=== PATIENT | female | born 1985 | race Caucasian/White ===

== ENCOUNTER 2024-06-07 10:10 | Outpatient (REF) | payer MEDICAID, SELFPAY ==
[2024-06-07 11:58] LABS: Alanine Aminotransferase 16 U/L (0-31); Albumin Level 4.3 g/dL (3.5-5.0); Alkaline Phosphatase 40 U/L (39-117); Anion Gap 9 (12-20); Aspartate Amino Transferase 15 U/L (5-31); Bilirubin Total 1.2 mg/dL (0.0-1.0); Blood Urea Nitrogen 14 mg/dL (9-16); Calcium 9.1 mg/dL (8.4-10.2); Carbon Dioxide 25 mmol/L (22-29); Chloride 110 mmol/L (96-108); Estimated Glomerular Filt Rate > 60; Glucose Random 97 mg/dL (60-115); Potassium 4.1 mmol/L (3.3-5.1); Sodium 140 mmol/L (135-145); Total Protein 7.1 g/dL (6.5-8.0)
[2024-06-07 12:19] LABS: Ferritin 14 ng/mL (10-250); TSH reflex Free T4 2.09 uIU/mL (0.32-4.0)
[2024-06-07 13:08] LABS: CT PCR NOT DETECTED (Not Detect.); NG PCR NOT DETECTED (Not Detect.)
[2024-06-08 11:58] LABS: Bacterial Vaginosis PCR NEGATIVE (Negative); Candida Group PCR NOT DETECTED (Not Detect); Candida glab krusei PCR NOT DETECTED (Not Detect); Trichomonas vaginalis PCR NOT DETECTED (Not Detect)
[2024-06-09 08:08] LABS: Follicle Stimulating Hormone 12.1 mIU/mL; Prolactin Undiluted 4.5 ng/mL
== END 2024-06-07 10:11 | disposition home or self-care (01) ==
LOC: HO.HHCL 10:10
PROVIDERS: Visit Provider Internal Medicine
DX: N93.9 Abnormal uterine and vaginal bleeding, unspecified (principal)
CPT/HCPCS: 0352U; 36415; 80053; 82728; 83001; 84146; 84443; 87491; 87591

== ENCOUNTER 2024-07-14 07:59 | Outpatient (REF) | payer MEDICAID, SELFPAY | END 2024-07-14 08:00 | disposition home or self-care (01) | LOC: HO.US 07:59 | PROVIDERS: PCP Internal Medicine; Visit Provider Internal Medicine | DX: E04.1 Nontoxic single thyroid nodule (principal) | CPT/HCPCS: 76536 ==

== ENCOUNTER 2024-07-20 09:40 | Outpatient (REF) | payer MEDICAID, SELFPAY ==
[2024-07-20 12:19] LABS: Cholesterol 126 mg/dL (<200); HDL Cholesterol 48 mg/dL (>40); LDL Cholesterol Calculated 67 mg/dL (<100); Triglycerides 55 mg/dL (<150)
[2024-07-20 12:40] LABS: Free T4 (Free Thyroxine) 1.12 ng/dL (0.71-1.85); T4 Thyroxine 7.2 ug/dL (4.5-12.0); Thyroid Stimulating Hormone 1.75 uIU/mL (0.32-4.0)
[2024-07-20 14:18] LABS: Reflex LDLD? No
[2024-07-22 02:58] LABS: Triiodothyronine T3 Free 3.2 pg/mL (2.3-4.2); Triiodothyronine T3 Total 91 ng/dL (76-181)
[2024-07-23 05:12] LABS: TS Negative Control Passed; TS Panel A 0; TS Panel B 0; TS Positive Control Passed; TSpotTB Negative (Negative)
[2024-07-27 14:58] LABS: Anti Nuclear Antibody Pattern Nuclear, Nucleolar; Anti Nuclear Antibody Screen POSITIVE (NEGATIVE)
== END 2024-07-20 09:41 | disposition home or self-care (01) ==
LOC: HO.HHCL 09:40
PROVIDERS: Visit Provider Internal Medicine
DX: E04.1 Nontoxic single thyroid nodule (principal); I73.00 Raynaud's syndrome without gangrene; I34.1 Nonrheumatic mitral (valve) prolapse
CPT/HCPCS: 36415; 80061; 84436; 84439; 84443; 84480; 84481; 86038; 86039; 86481

== ENCOUNTER → 2024-08-02 07:46 | Outpatient (REF) | payer MEDICAID, SELFPAY ==
--- NOTE | 2024-08-02 07:50 | CA_ITS ---
Transthoracic Echocardiogram Patient (Last, First, Middle): Lois Li, Gender: Female Date of : 1985 Age: 39 Procedure Date: 08/02/2024 Procedure Type: Transthoracic Echocardiogram Location: OP Height: 160. cm Weight: 58.97 kg BSA: 1.61 m2 Heart Rate: 71 bpm BP: 100 / 60 mmHg Metal Trimmer: CONCEPCIÓN Saini MD: Martine Proctor MD Interlocking Installer: Parth Jones MD Symptoms: MVP Study Quality: Fair ECG Rhythm: Sinus Conclusions: - 1. Normal LV ejection fraction of 60 65% 2. Mild thickening of the mitral valve without significant prolapse with mild mitral regurgitation 3. Normal RV systolic pressure 4. No gross pericardial effusion Findings Left Ventricle Normal left ventricular size, thickness, and systolic function. The visually estimated ejection fraction is between 60-65%. Spectral Doppler is indicative of a normal filling pattern. Right Ventricle Normal right ventricular cavity size and systolic function. Atria The left atrium is normal in size. Interatrial shunt cannot be excluded. The right atrium is normal in size. Aortic Valve The aortic valve structure and function is likely normal. There is no aortic valve stenosis. There is no aortic valve regurgitation. Mitral Valve Likely normal mitral valve structure and function. There is mild anterior and posterior mitral leaflet thickening. There is bowing of the anterior mitral leaflet without obvious prolapse and bowing of the posterior mitral leaflet without obvious prolapse. There is mild mitral valve regurgitation. There is no mitral valve stenosis. Pulmonic Valve The pulmonic valve was not well visualized. Tricuspid Valve Likely normal tricuspid valve structure and function. There is trace tricuspid valve regurgitation. The right ventricular systolic pressure is normal. The right ventricular systolic pressure is 14 mmHg. Normal right atrial pressure. There is no evidence of pulmonary hypertension. Great Vessels All visible segments of the aorta are normal in size. The pulmonary artery was not well visualized. There is no dilatation of the ascending aorta measuring 2.40 cm. Venous The inferior vena cava is normal in size and collapses greater than 50% with inspiration. Pericardium/Pleural There is no evidence of pericardial effusion. Prior Study Comparison Changes noted compared to prior study dated: 04/21/2018. mild mitral regurgitation noted Measurements 2D Linear Measurements IVSd: 0.76 0.6-0.9/0.6-1.0 cm LVIDd: 4.49 3.9-5.3/4.2-5.9 cm LVIDd Index: 2.79 2.4-3.2/2.2-3.1 cm/m2 LVIDs: 2.84 2.0-3.6 cm LVPWd: 0.86 0.7-1.1 cm LA Diam: 3.20 2.7-3.8/3.0-4.0 cm LAIDs Index: 1.99 1.5-2.3 cm/m2 LV Mass: 142.73 67-162/88-224 g LV Mass Index: 88.65 43-95/49-115 g/m2 LVOT Diam: 1.90 3.0+(-)1.3 cm 2D Systolic Function EF 4C: 67.20 >55% EF 2C: 59.50 >55% EF BiP: 64.20 >55% Mitral Valve MV Pk E: 0.75 MV PK A: 0.67 MV Decel Time: 138.00 E/A: 1.10 E'Lateral: 10.30 E'Medial: 9.36 E/E' Med: 8.00 E/E' Lat: 7.20 PHT: 40.00 MVA PHT: 5.50 Decel Obion: 5.40 Aortic Valve AoV Pk Olman: 0.99 AoV Mn Olman: 0.70 AoV VTI: 0.21 AoV Pk Grad: 4.00 Aov Mn Grad: 2.00 MELISSA Cont.VTI: 2.32 LVOT LVOT Pk Olman: 0.86 LVOT Mn Olman: 0.61 LVOT VTI: 0.18 LVOT Pk Grad: 3.00 LVOT Mn Grad: 2.00 LVOT Diam: 1.90 LVOT Area: 2.84 Diastolic Function MV Pk E: 0.75 MV Pk A: 0.67 E/A: 1.10 E'Medial: 9.36 E/E' Med: 8.00 E' Laterial: 10.30 E/E' Lat: 7.20 Right Ventricle TAPSE (mm): 22.70 TVS' Olman: 11.40 Tricuspid Valve TR Pk Olman: 1.65 TR Pk Grad: 11.00 RA Press: 3.00 RVSP: 14.00 Great Vessels Aorta Sinus of Valsalva: 2.80 2.0-3.5 cm Ao Asc: 2.40 2.1-3.4 cm Pulmonary Valve PV Pk Olman: 0.71 Peak PV Grad: 2.00 Updated in Other Vendor System with Status of Final Parth Jones MD electronically signed on 08/02/2024 1:12:00 PM with status of Final
== END ==
LOC: HO.CARD 07:46
PROVIDERS: PCP Internal Medicine; Visit Provider Internal Medicine
DX: I34.1 Nonrheumatic mitral (valve) prolapse (principal)
CPT/HCPCS: 93306

== ENCOUNTER → 2024-08-02 07:50 | Outpatient (BNV) | payer MEDICAID, SELFPAY | PROVIDERS: PCP Internal Medicine; Visit Provider Internal Medicine Cardiovascular Disease | DX: I34.0 Nonrheumatic mitral (valve) insufficiency (principal) | CPT/HCPCS: 93306 ==

== ENCOUNTER 2024-12-09 08:57 | Outpatient (AMB) | payer MEDICAID, SELFPAY ==
--- NOTE | 2024-12-09 09:41 | A.OFFVIS_ITS ---
Vital Signs 12/09/24 09:44 Height 5 ft 2 in Weight 138 lb 14.259 oz BMI 25.4 BP 112/62 Blood Pressure Location Lt brachial Position Sitting Pulse 71 Pulse Source Monitor Intake Visit Reasons: PERSONAL CARE SERVICE PROVIDER/Dr. Proctor/Mitral valve prolapse Allergies No Known Allergies [No Known Allergies*] Allergy (Verified 12/09/24 09:45) Medication List - Last Reconciled 12/09/24 by Romeo Delgadillo MD No Known Home Meds HPI Comments Details: Lois is here for consultation regarding mitral valve prolapse. Apparently, she was told to have mitral valve prolapse wrong age of 14 or so. She was 'prophylactically' put on atenolol for many years but she has not taken that recently. Otherwise, she does not really have any clear-cut cardiac symptoms like chest pains or shortness of breath or palpitations or syncopal episodes. Unlimited physical activity tolerance and she otherwise feels well. [facility] Medical History (Updated 12/09/24 @ 10:29 by Romeo Delgadillo MD) delivery delivered Hernia MVP (mitral valve prolapse) Surgical History (Updated 12/09/24 @ 09:48 by Xiomy Barnett) Previous back surgery Family History (Updated 12/09/24 @ 09:49 by Xiomy Barnett) Father H/O heart surgery Mother High blood pressure Kidney disease Social History (Updated 12/09/24 @ 09:49 by Xiomy Barnett) Alcohol intake: never Patient Tobacco Use Status: Never used Tobacco Review of Systems Const Denies weakness ENT Denies dizziness Card Denies chest pain, Denies chest pain with activity, Denies syncope, Denies rapid heart rate, Denies pedal edema, Denies edema, Denies leg edema, Denies lightheadedness, Reports palpitations, Denies dyspnea, Denies dyspnea on exertion and Denies orthopnea Resp Denies cough, Denies dyspnea and Denies dyspnea on exertion GI Denies hematochezia and Denies change in stool character Musc Denies abnormal gait, Denies muscle cramps, Denies muscle weakness, Denies numbness, Denies radiating pain into limb and Denies tingling Neuro Denies abnormal gait, Denies dizziness, Denies syncope, Denies numbness, Denies tingling and Denies weakness Endo Reports palpitations Physical Exam Vital Signs: Last Vital Signs Pulse 71 03/27/25 09:44 BP 112/62 12/09/24 09:44 BMI result Body Mass Index 25.4 Const General: comfortable and no acute distress Orientation/consciousness: patient oriented x3 HEENT Other: Unremarkable Head: Yes normal to inspection Neck Neck: Yes normal visual inspection Chest Chest palpation & inspection: normal inspection of the chest Resp Auscultation: clear to auscultation bilaterally Cardio Palpation: normal PMI Heart sounds: S1 normal heart sound present, S2 normal heart sound present, no gallops, no murmurs and no rubs GI Palpation (GI): Soft to palpation Back/Spine/Pelvis Other: unremarkable Skin General skin exam: no rashes or lesions noted Neuro General: patient oriented x3 Extrem General: Yes normal to inspection Psych Mental Status: mental status grossly normal Office Procedures EKG Details: EKG with underlying sinus rhythm at 71/Min; no significant ST-T changes and otherwise unremarkable. [place] [address]-Lfvgzeixvoqdexxph, Complete Assessment & Plan Assessment & Plan (1) MVP (mitral valve prolapse): Code(s): I34.1 - Nonrheumatic mitral (valve) prolapse Category: Medical Plan: In the recent echocardiogram, preserved LVEF at 60-65%. There is evidence of mitral valve thickening and bowing of both anterior and posterior leaflets, but no definitive prolapse. Mild mitral regurgitation. Findings discussed with patient. Overall benign. Low likelihood of progression into hemodynamically significant mitral regurgitation requiring any interventions. It seems she has had this for at least 25+ years. Advised her to monitor for any cardiac symptoms and report if any. She agrees. Otherwise, recommend repeating an echocardiogram with follow-up in 3-4 years. There is no need for Atenolol. Coding Level of Care Code New Pt Level 3 (94348) Diagnoses MVP (mitral valve prolapse) I34.1 CPT Codes EKG - CPT: 94610-Qibbihoihoqcowlel, Complete ([id number])
[2024-12-09 09:44] VITALS: BP 112/62; PULSE 71; BMI 25.4
== END 2024-12-09 10:16 | disposition home or self-care (01) ==
LOC: HO.HCS 08:57
PROVIDERS: PCP Internal Medicine; Visit Provider Internal Medicine
DX: I34.1 Nonrheumatic mitral (valve) prolapse (principal)
CPT/HCPCS: 93010; 99203

== ENCOUNTER → 2024-12-09 08:57 | Outpatient (BNVA) | payer MEDICAID, SELFPAY | PROVIDERS: PCP Internal Medicine; Visit Provider Internal Medicine | DX: I34.1 Nonrheumatic mitral (valve) prolapse (principal) | CPT/HCPCS: 93005; 99202 ==

== ENCOUNTER 2025-06-13 11:47 | Outpatient (REF) | payer MEDICAID, SELFPAY ==
--- NOTE | ~2025-06-13 | XR_ITS ---
EXAMINATION: XR CHEST CLINICAL INFORMATION: right anterior chest pain COMPARISON: None available. TECHNIQUE: 2 views of the chest were obtained. FINDINGS: Bilateral Narayanan rods are noted. Lungs are clear. Heart size is normal. There is no pleural effusion. XR/XR chest 2V IMPRESSION: No acute disease. Spinal hardware. Electronically signed by: Kishan Perez MD 06/13/2025 12:02 PM EDT RP
--- OUTSIDE RECORDS SUMMARY | 2025-06-13 10:20 | XMS_ITS | Encounter Summary ---
Author Organization [employer] Address [address] [facility] [address] [place] [address] Care Team Providers Care Wind Up Worker Name Role Phone Martine Proctor MD Primary Care Provider + Reason for Referral * Imaging (Routine) - Authorized Specialty Diagnoses / Procedures Referred By Latasha t Referred To Contact Radiology Diagnoses Breast pain, right Procedures BI US Breast Complete Right Chang Pablo MD [address] [place] [address] Phone: tel: fax: [facility] Referral ID Status Reason Start Date Expiration Date V isits Requested Visits Authorized [id number] Authorized 06/13/2025 06/13/2026 1 1 * Imaging (Routine) - Authorized Specialty Diagnoses / Procedures Referred By Latasha t Referred To Contact Radiology Diagnoses Breast pain, right Procedures Mammogram Diagnostic Right Chang Pablo MD [address] [place] [address] Phone: tel: fax: [facility] Referral ID Status Reason Start Date Expiration Date V isits Requested Visits Authorized [id number] Authorized 06/13/2025 06/13/2026 1 1 Reason for Visit * Reason Comments Arm Pain Encounter Details Date Type Department Care Team (Late st Contact Info) Description 06/13/2025 10:20 AM EDT Office Visit [facility] [address] [place] [address] Right-sided chest pain (Primary Dx); Breast pain, right Social History Tobacco Use Types Packs/Day Years Used Date Smoking Tobacco: Never Smokeless Tobacco: Never Alcohol Use Standard Drinks/Week Comments Never 0 (1 standard drink = 0.6 oz pur e alcohol) Housing Stability Answer Date Recorded What is your housing situation today? I have олег dutton 06/25/[address] you li ve. Do you have problems with any of the following? None of the above 06/25/2024 Food Insecurity Answer Date Recorded Within the past 12 months, y ou worried that your food would run out before you got money to buy more: Never True 06/25/2024 Within the past 12 months,th e food you bought just didn't last and you didn't have enough money to get more: Never True 07/2024 Transportation Answer Date Recorded In the past 12 months, has l ack of transportation kept you from medical appts, meetings, work or from getting things needed for daily living? No 06/25/2024 Utilities Answer Date Recorded In the past 12 months, has t he electric, gas, oil or water company threatened to shut off services in your home? No 06/25/2024 Depression Answer Date Recorded Patient Health Questionnaire-2 Score 0 07/05/2024 Internet Access Answer Date Recorded Internet Access Q1 Yes 06/25/2024 Internet Access Q2 Not on file 06/25/2024 Comments No Sex and Gender Information Value Date Recorded Sex Assigned at Female 07/15/2022 10:32 AM EDT Legal Sex Female 10:32 AM EDT Gender Identity Female 07/15/2022 10:32 AM EDT Sexual Orientation Straight 07/15/2022 10 :32 AM EDT documented as of this encounter Last Filed Vital Signs Vital Sign Reading Time Taken Comments Blood Pressure 126/69 06/13/2025 10:40 AM EDT Pulse 77 06/13/2025 10:40 AM EDT Temperature 36.8 C (98.2 F) 06/13/2025 10:40 AM EDT Respiratory Rate 18 06/13/2025 10:4 0 AM EDT Oxygen Saturation 98% 06/13/2025 10: 40 AM EDT Inhaled Oxygen Concentration - - Weight 62.1 kg (136 lb 12.8 oz) 025 10:40 AM EDT Height - - Body Mass Index 24.82 09/13/2024 10:24 AM EST documented in this encounter Plan of Treatment Upcoming Encounters Date Type Department Care Team (Late st Contact Info) Description 2025 9:00 AM EDT Office Visit [facility] [address] [place] [address] Mamie, Maye [address] [place] [address] 08/19/2025 12:15 PM EST Office Visit [facility] [address] [place] [address] [phone] Martine Proctor MD [address] [place] [phone] Scheduled Orders Name Type Priority Associated Diagnoses Orde r Schedule D-Dimer, Quantitative Lab Routine Right-sided chest pain Expected: 06/13/2025 (Approximate), Expires: 06/13/2026 Mammogram Diagnostic Right Imaging Routine Breast pain, right Expected: 06/13/2025, Expires: 08/13/2026 BI US Breast Complete Right Imaging Routine Breast pain, right Expected: 06/13/2025, Expires: 06/13/2026 documented as of this encounter Procedures Procedure Name Priority Date/Time Associated Diagnosis Comments XR CHEST 2 VIEWS Routine 06/13/2025 11:5 7 AM EDT Right-sided chest pain documented in this encounter Results * XR Chest 2 Views (06/13/2025 11:57 AM EDT) Anatomical Region Laterality Modality Chest Radiographic Yolanda ging 06/13/2025 11:5 7 AM EDT Narrative 06/13/2025 12:05 PM EDT [address] [address] XRay Report Signed Patient: Lois Li MR#: [id number] : 1985 Acct:[id number] Age/Sex: 39 / F ADM Date: 06/13/25 [facility]: [facility] Attending Dr: Chang Pablo MD Ordering Physician: CHANG PABLO MD Date of Service: 06/13/25 Procedure(s): XR chest 2V Accession Number(s): [id number] cc: CHANG PABLO MD Reason for Exam: right anterior chest pain EXAMINATION: XR CHEST CLINICAL INFORMATION: right anterior chest pain COMPARISON: None available. TECHNIQUE: 2 views of the chest were obtained. FINDINGS: Bilateral Narayanan rods are noted. Lungs are clear. Heart size is normal. There is no pleural effusion. XR/XR chest 2V IMPRESSION: No acute disease. Spinal hardware. Electronically signed by: Kishan Perez MD 06/13/2025 12:02 PM EDT RP Dictated By: Kishan Perez MD Signed By: <Electronically signed by Kishan Perez MD in OV> 06/13/25 1202 DD/ 1157 TD/TT: 06/13/25 1158 Granite Fabricator: Procedure Note Donotuseinterpreter, Image - 06/13/[address] [address] XRay Report Signed Patient: Lois Li#: M [id number] : 1985Acct:[id number] Age/Sex: 39 / FADM Date: 06/13/25 Loc: HO.[facility] Attending Dr: Chang Pablo MD Ordering Physician: CHANG PABLO MD Date of Service: 06/13/25 Procedure(s): XR chest 2V Accession Number(s): [id number] cc: CHANG PABLO MD Reason for Exam: right anterior chest pain EXAMINATION: XR CHEST CLINICAL INFORMATION: right anterior chest pain COMPARISON: None available. TECHNIQUE: 2 views of the chest were obtained. FINDINGS: Bilateral Narayanan rods are noted. Lungs are clear. Heart size is normal. There is no pleural effusion. XR/XR chest 2V IMPRESSION: No acute disease. Spinal hardware. Electronically signed by: Kishan Perez MD 06/13/2025 12:02 PM EDT RP Dictated By: Kishan Perez MD Signed By: <Electronically signed by Kishan Perez MD in OV> 06/13/25 1202 DD/ 1157 TD/TT: 06/13/25 1158 Granite Fabricator: Chang Pablo MD IMG XR PROCEDURES Final Result documented in this encounter Visit Diagnoses Diagnosis Right-sided chest pain- Primary Breast pain, right documented in this encounter Care Teams Wind Up Worker Relationship Specialty Start Date End Date Martine Proctor MD [address] [place] [phone] PCP - General Internal Medicine 06/07/24 documented as of this encounter
--- OUTSIDE RECORDS SUMMARY | 2025-06-13 13:15 | XMS_ITS | Encounter Summary ---
Author Organization [employer] Address [address] [place] [address] [address] [place] [address] Care Team Providers Care Medical Scientist Name Role Phone Martine Proctor MD Primary Care Provider + Encounter Details Date Type Department Care Team (Late st Contact Info) Description 10/23/2023 Orders Only [facility] [address] [place] [address] Angelina Mayer DDS [address] [place] [address] Social History Tobacco Use Types Packs/Day Years Used Date Smoking Tobacco: Never Smokeless Tobacco: Never Alcohol Use Standard Drinks/Week Comments Never 0 (1 standard drink = 0.6 oz pur e alcohol) Comments Unknown Sex and Gender Information Value Date Recorded Sex Assigned at Female 07/15/2022 10:32 AM EDT Legal Sex Female 10:32 AM EDT Gender Identity Female 07/15/2022 10:32 AM EDT Sexual Orientation Straight 07/15/2022 10 :32 AM EDT documented as of this encounter Plan of Treatment Upcoming Encounters Date Type Department Care Team (Late st Contact Info) Description 2025 9:00 AM EDT Office Visit [facility] [address] [place] [address] Maye Hatch [address] [place] [address] 08/19/2025 12:15 PM EST Office Visit [facility] [address] [place] [address] Martine Proctor MD [address] [place] [address] documented as of this encounter Visit Diagnoses Not on filedocumented in this encounter Care Teams Medical Scientist Relationship Specialty Start Date End Date Martine Proctor MD [address] [place] [address] PCP - General Internal Medicine 06/07/24 documented as of this encounter
--- OUTSIDE RECORDS SUMMARY | 2025-06-13 13:15 | XMS_ITS | Encounter Summary ---
Author Organization [employer] Address [address] [facility] [address] [place] [address] Care Team Providers Care Varitype Operator Name Role Phone Martine Proctor MD Primary Care Provider + Encounter Details Date Type Department Care Team (Latest Contact Info) Description 06/13/2025 Travel Social History Tobacco Use Types Packs/Day Years Used Date Smoking Tobacco: Never Smokeless Tobacco: Never Alcohol Use Standard Drinks/Week Comments Never 0 (1 standard drink = 0.6 oz pur e alcohol) Housing Stability Answer Date Recorded What is your housing situation today? I have олегbimal dutton 06/25/[address] you [...] Description 2025 9:00 AM EDT Office Visit [facility] [address] [place] [address] Mamie, Maye [address] [place] [address] 08/19/2025 12:15 PM EST Office Visit [facility] [address] [place] [address] Martine Proctor MD [address] [place] [address] documented as of this encounter Visit Diagnoses Not on filedocumented in this encounter Care Teams Varitype Operator Relationship Specialty Start Date End Date Martine Procotr MD [address] [place] [address] PCP - General Internal Medicine 06/07/24 documented as of this encounter
--- OUTSIDE RECORDS SUMMARY | 2025-06-13 13:15 | XMS_ITS | Encounter Summary ---
Author Organization [employer] Address [address] [place] [address] [address] [place] [address] Care Team Providers Care Production Corrugator Name Role Phone Martine Proctor MD Primary Care Provider + Reason for Visit * Reason Onset Date Comments Appointment 03/07/2023 Encounter Details Date Type Department Care Team ([facility] st Contact Info) Description 03/07/2023 Telephone [facility] [address] [place] [address] Cipriano Jordan, DDS [address] [place] [address] Appointment Social History Tobacco Use Types Packs/Day Years [...] Orientation Straight 07/15/2022 10 :32 AM EDT COVID-19 Exposure Response Date Recorded In the last 10 days, have yo u been in contact with someone who was confirmed or suspected to have Coronavirus/COVID-19? No / Unsure 03/10/2023 9:24 AM EDT documented as of this encounter Miscellaneous Notes * Telephone Encounter - Latisha Blanco - 03/07/2023 11:08 AM EDT Lois Patel 1985 Patient called in and stated she needs pre op medication before appt on 03/10/23. documented in this encounter Plan of Treatment Upcoming Encounters Date Type Department Care Team (Late st Contact Info) Description 2025 9:00 AM EDT Office Visit [facility] [address] [place], [place] [phone] Mamie, Maye [address] [place] [address] 08/19/2025 12:15 PM EST Office Visit [facility] [address] [place] [address] Martine Proctor MD [address] [place] [address] documented as of this encounter Visit Diagnoses Not on filedocumented in this encounter Care Teams Production Corrugator Relationship Specialty Start Date End Date Martine Proctor MD [address] [place] [address] [phone] PCP - General Internal Medicine 06/07/24 documented as of this encounter
--- OUTSIDE RECORDS SUMMARY | 2025-06-13 13:15 | XMS_ITS | Encounter Summary ---
Author Organization [employer] Address [address] [facility] [address] [place] [address] Care Team Providers Care Timber Surveyor Name Role Phone Martine Proctor MD Primary Care Provider + Encounter Details Date Type Department Care Team (Late st Contact Info) Description 06/13/2025 Orders Only [facility] ADULT D[facility] [address] [place] [address] Angelina Mayer, DDS [address] [place] [address] Social History Tobacco Use Types Packs/Day Years [...] t he electric, gas, oil or water [employer] threatened to shut off services in your [...] Description 2025 9:00 AM EDT Office Visit [facility] [address] [place] [address] MamieMaye [address] [place] [address] 08/19/2025 12:15 PM EST Office Visit [facility] MED[facility] [address] [place] [address] Martine Proctor MD [address] [place] [address] documented as of this encounter Visit Diagnoses Not on filedocumented in this encounter Care Teams Timber Surveyor Relationship Specialty Start Date End Date Martine Proctor MD [address] [place] [address] PCP - General Internal Medicine 06/07/24 documented as of this encounter
--- OUTSIDE RECORDS SUMMARY | 2025-06-13 13:15 | XMS_ITS | Encounter Summary ---
Author Organization [employer] Address [address] [facility] [address] [place] [address] Care Team Providers Care Internet Salesperson Name Role Phone Martine Proctor MD Primary Care Provider + Reason for Visit * Reason Onset Date Comments medication change 10/01/2023 Encounter Details Date Type Department Care Team ([facility] st Contact Info) Description 10/01/2023 Telephone [facility] AD[facility] [address] [place] [address] Angelina Mayer, DDS [address] [place] [address] medication change Social History Tobacco Use Types Packs/Day Years [...] encounter Miscellaneous Notes * Telephone Encounter - Refugio Cummings DMD - 10/06/2023 11:31 AM EST Please follow up with Dr. Patel. Dr. Cummings * Telephone Encounter - Lisseth Ibarra - 10/06/2023 11:12 AM EST Patient called in again today stating that she is unable to take the antibiotic in pill form. She needs it in liquid. Can this be sent in for her DR * Telephone Encounter - Caroline Thompson - 10/01/2023 11:23 AM EST Patient needs dr patel to resend medication Lois Patel is a 38 y.o. year old female patient with referred for .liquid only she can not drink pills documented in this encounter Plan of Treatment Upcoming Encounters Date Type Department Care Team (Late st Contact Info) Description 2025 9:00 AM EDT Office Visit [facility] ADULT D[facility] [address] [place] [address] Mamie, Maye [address] [place] [address] 08/19/2025 12:15 PM EST Office Visit [facility] MEDICINE [address] [place] [address] Martine Proctor MD [address] [place] [address] documented as of this encounter Visit Diagnoses Not on filedocumented in this encounter Care Teams Internet Salesperson Relationship Specialty Start Date End Date Martine Proctor MD [address] [place] [address] PCP - General Internal Medicine 06/07/24 documented as of this encounter
--- OUTSIDE RECORDS SUMMARY | 2025-06-13 13:15 | XMS_ITS | Encounter Summary ---
Author Organization [employer] Address [address] [place] [address] [address] [place] [address] Care Team Providers Care Ticket Writer Name Role Phone Martine Proctor MD Primary Care Provider + Encounter Details Date Type Department Care Team (Late st Contact Info) Description 09/16/2023 Orders Only [facility] [address] [place] [address] Angelina Mayer, DDS [address] [place] [address] Social History Tobacco Use Types Packs/Day Years [...] Description 2025 9:00 AM EDT Office Visit [facility] [address] [place] [address] Maye Hatch [address] [place] [address] 08/19/2025 12:15 PM EST Office Visit [facility] MED[facility] [address] [place] [address] Martine Proctor MD [address] [place] [address] documented as of this encounter Visit Diagnoses Not on filedocumented in this encounter Care Teams Ticket Writer Relationship Specialty Start Date End Date Martine Proctor MD [address] [place] [address] PCP - General Internal Medicine 06/07/24 documented as of this encounter
--- OUTSIDE RECORDS SUMMARY | 2025-06-13 13:15 | XMS_ITS | Encounter Summary ---
Author Organization [employer] Address [address] [place] [address] Care Team Providers Care Cook Enchilada Name Role Phone Mratine Proctor MD Primary Care Provider + Encounter Details Date Type Department Care Team ([facility] st Contact Info) Description 02/18/2025 Orders Only [facility] [address] [place], [place] [phone] ProviderIsabel MD Social History Tobacco Use Types Packs/Day Years [...] Description 2025 9:00 AM EDT Office Visit [facility] ADULT [facility] [address] [place] [address] Mamie, Maye [address] [place] [address] 08/19/2025 12:15 PM EST Office Visit [facility] MED[facility] [address] [place] [address] Martine Proctor MD [address] [place] [phone] documented as of this encounter Procedures Procedure Name Priority Date/Time Associated Diagnosis Comments MAMMOGRAPHY Routine 01/24/2025 8:47 AM EDT documented in this encounter Results * Hm Mammography (01/24/2025 8:47 AM EDT) Anatomical Region Laterality Modality Other Historical Provider HEALTH MAINTENANCE Final Result documented in this encounter Visit Diagnoses Not on filedocumented in this encounter Care Teams Cook Enchilada Relationship Specialty Start Date End Date Martine Proctor MD [address] [place] [address] [phone] PCP - General Internal Medicine 06/07/24 documented as of this encounter
--- OUTSIDE RECORDS SUMMARY | 2025-06-13 13:15 | XMS_ITS | Encounter Summary ---
Author Organization [employer] Address [address] [place] [address] 7 [place] [address] Care Team Providers Care Counselor Nurses' Association Name Role Phone Martine Proctor MD Primary Care Provider + Encounter Details Date Type Department Care Team (Late Contact Info) Description 01/15/2023 Abstract [facility] ADULT DENTAL [address] [place] [address] Tony Del Rosario Social History Tobacco Use Types Packs/Day Years [...] suspected to have Coronavirus/COVID-19? No / Unsure 01/16/2023 2:36 PM EDT documented as of this encounter Plan of Treatment Upcoming Encounters Date Type Department Care Team (Late st Contact Info) Description 2025 9:00 AM EDT Office Visit [facility] ADULT [facility] [address] [place] [address] Maye Hatch [address] [place] [address] 08/19/2025 12:15 PM EST Office Visit [facility] MED[facility] [address] [place] [address] Martine Proctor MD [address] [place] [address] documented as of this encounter Visit Diagnoses Not on filedocumented in this encounter Care Teams Counselor Nurses' Association Relationship Specialty Start Date End Date Martine Proctor MD [address] [place] [address] PCP - General Internal Medicine 06/07/24 documented as of this encounter
--- OUTSIDE RECORDS SUMMARY | 2025-06-13 13:15 | XMS_ITS | Encounter Summary ---
Author Organization [employer] Address [address] [place] [address] 7 [place] [address] Care Team Providers Care Ceramic Designer Name Role Phone Martine Proctor MD Primary Care Provider + Encounter Details Date Type Department Care Team (Late st Contact Info) Description 03/11/2023 Abstract [facility] ADULT DENTAL [address] [place] [address] Social History Tobacco Use Types Packs/Day Years [...] Description 2025 9:00 AM EDT Office Visit [facility] ADULT DENTAL [address] [place] [address] Maye Hatch [address] [place] [address] 08/19/2025 12:15 PM EST Office Visit [facility] MEDICINE [address] [place], [place] [phone] Martine Proctor MD [address] [place], [place] [phone] documented as of this encounter Visit Diagnoses Not on filedocumented in this encounter Care Teams Ceramic Designer Relationship Specialty Start Date End Date Martine Proctor MD [address] [place] [address] PCP - General Internal Medicine 06/07/24 documented as of this encounter
--- OUTSIDE RECORDS SUMMARY | 2025-06-13 13:15 | XMS_ITS | Encounter Summary ---
Author Organization [employer] Address [address] [facility] [address] [place] [address] Care Team Providers Care Sock Liner Name Role Phone Martine Proctor MD Primary Care Provider + Reason for Visit * Reason Onset Date Comments Appointment 01/15/2023 Encounter Details Date Type Department Care Team ([facility] st Contact Info) Description 01/15/[address] [facility] ADULT DENTAL [address] [place] [address] Cipriano Jordan, DDS [address] [place] [address] Appointment Social History Tobacco Use Types Packs/Day [...] PM EDT documented as of this encounter Miscellaneous Notes * Telephone Encounter - Latisha Blanco - 01/15/2023 2:46 PM EDT Thank you I have reached out to patient * Telephone Encounter - Latisha Blanco - 01/15/2023 9:58 AM EDT Lois Patel MITA 1985 Patient has appt on 01/16/2023 and needs prescription sent to pharmacy before appt documented in this encounter Plan of Treatment Upcoming Encounters Date Type Department Care Team (Late st Contact Info) Description 2025 9:00 AM EDT Office Visit [facility] ADULT DENTAL [address] [place] [address] Maye Hatch [address] [place] [address] 08/19/2025 12:15 PM EST Office Visit [facility] [address] [place] [address] Martine Proctor MD [address] [place] [address] documented as of this encounter Visit Diagnoses Not on filedocumented in this encounter Care Teams Sock Liner Relationship Specialty Start Date End Date Martine Proctor MD [address] [place] [address] PCP - General Internal Medicine 06/07/24 documented as of this encounter
--- OUTSIDE RECORDS SUMMARY | 2025-06-13 13:15 | XMS_ITS | Encounter Summary ---
Author Organization [employer] Address [address] [facility] [address] [place] [address] Care Team Providers Care Scenario Writer Name Role Phone Martine Proctor MD Primary Care Provider + Encounter Details Date Type Department Care Team ([facility] st Contact Info) Description 01/05/2025 Orders Only [facility] [address] [place], [place] [phone] Andreina Ramirez Social History Tobacco Use Types Packs/Day Years [...] Description 2025 9:00 AM EDT Office Visit [facility] ADULT DENTAL [address] [place], [place] [phone] Mamie, Maye [address] [place] [address] 08/19/2025 12:15 PM EST Office Visit [facility] MEDICINE [address] [place] [address] Martine Proctor MD [address] [place] [address] documented as of this encounter Procedures Procedure Name Priority Date/Time Associated Diagnosis Comments PAP/HPV Routine 12/30/2024 12:00 AM EDT documented in this encounter Results * HM PAP/HPV (12/30/2024 12:00 AM EDT) Pap Smear 1. NILM 1. NILM [facility] HPV Not Detected Undetected, Indeterminat e, Quantitative , Not Detected [facility] us Historical Provider [facility] MAINTENANCE Edited Result - Final [facility] [address] [place] [address], documented in this encounter Visit Diagnoses Not on filedocumented in this encounter Care Teams Scenario Writer Relationship Specialty Start Date End Date Martine Proctor MD [address] [place] [phone] PCP - General Internal Medicine 06/07/24 documented as of this encounter
--- OUTSIDE RECORDS SUMMARY | 2025-06-13 13:15 | XMS_ITS | Clinical Summary ---
Author Organization [employer] Address [address] [facility] 7t [place] [address] Care Team Providers Care Strategic Marketing Manager Name Role Phone Martine Proctor MD Primary Care Provider + Allergies No known active allergies Medications amoxicillin (Amoxil) 400 MG/5ML suspension Take 25 mL (2,000 mg) by mouth 1 (one) time for 1 dose. Take 25 ml by mouth 1 hour prior dental procedure 25 mL 06/13/20 25 Active acetaminophen (Tylenol) 160 MG/5ML liquid Take 20.3 mL (650 mg) by mouth every 4 (four) hours if needed for moderate pain or fever for up to 10 days. 473 mL 06/13/20 25 025 Active ibuprofen 100 MG/5ML suspension Take 20 mL (400 mg) by mouth every 6 (six) hours if needed for moderate pain, fever or headaches. 400 mL 06/13/20 25 Active ibuprofen 100 MG/5ML suspension Take 20 mL (400 mg) by mouth every 6 (six) hours if needed for mild pain. 20 mL 01/10/20 23 025 Discontinued(Re order (will not trigger notification to Pharmacy)) Active Problems Problem Noted Date Diagnosed Date Mitral valve insufficiency 09/13/2024 Assessment & Plan (09/13/2024 11:21 AM EST): Refer to Cardiology, see above. Umbilical hernia without obstruction and without gangrene 07/05/2024 Assessment & Plan (07/05/2024 10:16 AM EDT): Small, asymptomatic. D/w patient re weight reduction Will fu after today's labs are done and decide on surgical correction. Advised re avoiding constipation. Thoracogenic scoliosis of thoracolumbar region 1 Assessment & Plan (07/05/2024 10:17 AM EDT): Sp surgery at age 12, doing well Advised re keeping healthy weight, exercise Advised re thoracic lumbar strengthening exercises, may refer to PT in the future. DUB (dysfunctional uterine bleeding) 06/07/2024 Assessment & Plan (06/30/2024 11:23 AM EDT): - needs further Senior Wind Turbine Technician eval, will refer - order pelvic ultrasound - take iron supplementation daily x 3 months - f/u with me as scheduled Assessment & Plan (06/07/2024 10:09 AM EDT): No significant anemia. FU labs and ferritin RO vaginitis/STD, will fu lab results Advised to keep sxs dairy Will need full vaginal exam/PAP We'll schedule fu in 3-4w and needs TSO appt to fu on other chronic conditions. Open fracture of tooth 11/17/2023 Raynaud's disease 06/17/2018 Assessment & Plan (07/05/2024 10:15 AM EDT): Not active, get ANAs and fu prn. Epigastric pain 07/04/2017 Mitral valve prolapse 07/04/2017 Assessment & Plan (09/13/2024 11:22 AM EST): Has mild MR but no S/S of CHF, I do not think she needs additional treatment at this time. I explained there is no indication of SBE prophylaxis. I will send her to Cardiology for further recommendations. Assessment & Plan (07/05/2024 10:15 AM EDT): Order echo No s/s CHF Polyp of gallbladder 07/04/2017 Assessment & Plan (09/13/2024 11:21 AM EST): Asymptomatic so far. I discussed with pt the importance of avoiding fatty foods, re consult PRN postprandial nausea, vomiting, or severe abdominal pain. Thyroid nodule 07/04/2017 Overview (09/13/2024): Thyroid US 07/04/24 Assessment & Plan (09/13/2024 11:23 AM EST): On left side, will FU thyroid US in June 2025. TFTs within normal limits. Assessment & Plan (07/05/2024 10:17 AM EDT): PE is normal. Order TFTs and thyroid US and fu next appt. Encounters Date Type Department Care Team Description 06/13/2025 10:20 AM EDT Office Visit [facility] [address] [place] [address] Right-sided chest pain (Primary Dx); Breast pain, right 06/13/2025 Travel 06/13/2025 Orders Only [facility] [address] [place] [address] Sparks-Patel, Angelina, DDS from Last 3 Months Immunizations Immunization Administration Dates Next Due Influenza, seasonal, injectable, preservative fr ee 07/05/2024 Family History Medical History Relation Name Comments open heart surgery Father Hypothyroidism Mother ca cervix Mother ckd Mother htn Mother Relation Name Status Comments Father Mother Alive Social History Tobacco Use Types Packs/Day Years Used Date Smoking Tobacco: Never Smokeless Tobacco: Never Tobacco Cessation:Counseling Given: Not Answered Alcohol Use Standard Drinks/Week Comments Never 0 [...] Orientation Straight 07/15/2022 10 :32 AM EDT Last Filed Vital Signs Vital Sign Reading [...] 12.8 oz) 025 10:40 AM EDT Height 158.1 cm (5' 2.25 ) 09/13/2024 1 0:24 AM EST Body Mass Index 24.82 09/13/2024 10:24 AM EST Plan of Treatment Upcoming Encounters Date Type Department Care Team (Late st Contact Info) Description 2025 9:00 AM EDT Office Visit [facility]ULT D[facility] [address] [place] [address] Maye Hatch [address] [place] [address] 08/19/2025 12:15 PM EST Office Visit [facility] [address] [place] [address] Martine Proctor MD [address] [place] [address] Health Maintenance Due Date Last Done Comments HIV Screening 1985 Disability Screening 1985 Alcohol/Substance Use Screening 1995 Family Planning (PISQ) 1998 HPV Vaccines (1 - 3-dose series) 1998 Hepatitis C Screening 2001 Hepatitis A Vaccines (1 of 2 - Risk 2-dose series) 2002 Hepatitis B Vaccines (1 of 3 - 19+ 3-dose series) 2002 Pneumococcal Vaccine: Pediatrics (0 to 5 Years) and At-Risk Patients (6 to 49) Years (1 of 2 - PCV) 2002 Dental Oral Exam 07/20/2023 01/16/2023 Dental Prophylaxis 10/03/2023 04/01/2023, 02/03/2023 Dental X-Ray: Bitewings 01/18/2024 01/16/2023 COVID-19 Vaccine ( season) 2025 06/25/2022, 02/18/2022, 01/17/2021, Additional history exists Influenza Vaccine (#1) 2025 , 06/25/2022, 07/09/2021, Additional history exists SDOH Screening 06/25/2025 06/25/2024 Depression Screening 07/05/2025 07/05/2024, 07/05/20 24 Dental X-Ray: Full Mouth 01/17/2026 01/16/2023 Tobacco Screening 06/13/2026 06/13/2025 Mammogram 01/24/2027 01/24/2025 Cervical Cancer Screening 12/30/2029 HPV/Cotest 12/30/2029 12/30/2024 Pap Smear 12/30/2029 12/30/2024 DTaP/Tdap/Td Vaccines (3 - Td or Tdap) 09/03/2031 09/03/2021, 06/17/2018 Zoster Vaccines (1 of 2) 2033 RSV Patients and Patients Aged 60 years or older (1 - 1-dose 75+ series) 2058 HIB Vaccines Aged Out No longer eligi ble based on patient's age to complete this topic IPV Vaccines Aged Out No longer eligi ble based on patient's age to complete this topic Meningococcal B Vaccine Aged Out No l onger eligible based on patient's age to complete this topic Meningococcal Vaccine Aged Out No polly rhea eligible based on patient's age to complete this topic RSV under 20 months Aged Out No longe r eligible based on patient's age to complete this topic Rotavirus Vaccines Aged Out No longer eligible based on patient's age to complete this topic Procedures Procedure Name Priority Date/Time Associated Diagnosis Comments XR CHEST 2 VIEWS Routine 06/13/2025 11:5 7 AM EDT Right-sided chest pain HM MAMMOGRAPHY Routine 01/24/2025 8:47 AM EDT HM PAP/HPV Routine 12/30/2024 12:00 AM EDT PROPHYLAXIS - ADULT Routine 04/01/2023 8 :00 AM EDT INTRAORAL - COMPLETE SERIES OF RADIOGRAPHIC IMAGES Routine 01/16/2023 3:00 PM EDT Dental caries Encounter for dental examination Chronic periodontitis Asymptomatic irreversible pulpitis COMPREHENSIVE ORAL EVALUATION - NEW OR ESTABLISHED PATIENT Routine 01/16/2023 3:00 PM EDT Dental caries Encounter for dental examination Chronic periodontitis Asymptomatic irreversible pulpitis from Last 3 Months or Most Recently Relevant to Health Maintenance Results * XR Chest 2 Views (06/13/2025 11:57 AM EDT) Anatomical Region Laterality Modality Chest Radiographic Yolanda ging 06/13/2025 11:5 7 AM EDT Narrative 06/13/2025 12:05 PM EDT [address] [address] XRay Report Signed Patient: Lois Li MR#: [id number] : 1985 Acct:[id number] Age/Sex: 39 / F ADM Date: 06/13/25 Loc: HO.HHCX Attending Dr: Chang Pablo MD Ordering Physician: CHANG PABLO MD Date of Service: 06/13/25 Procedure(s): XR chest 2V Accession Number(s): [id number] cc: CHANG PABLO MD Reason for Exam: [...] 06/13/25 1202 DD/ 1157 TD/TT: 06/13/25 1158 Stock Handler Floorperson: Procedure Note Donotuseinterpreter, Image - 06/13/[address] [address] XRay Report Signed Patient: Lois LiMR#: [id number] : 1985Acct:[id number] Age/Sex: 39 / FADM Date: 06/13/25 Loc: HO.HHCX Attending Dr: Chang Pablo MD Ordering Physician: CHANG PABLO MD Date of Service: 06/13/25 Procedure(s): XR chest 2V Accession Number(s): [id number] cc: CHANG PABLO MD Reason for Exam: [...] 06/13/25 1202 DD/ 1157 TD/TT: 06/13/25 1158 Stock Handler Floorperson: Chang Pablo MD IMG XR PROCEDURES Final Result * Hm Mammography (01/24/2025 8:47 AM EDT) Anatomical Region Laterality Modality Other us Historical Provider HEALTH MAINTENANCE Final Result * PAP/HPV (12/30/2024 12:00 AM EDT) Pap Smear 1. NILM 1. NILM [facility] HPV Not Detected Undetected, Indeterminat e, Quantitative , Not Detected [facility] us Historical Provider HEALTH MAINTENANCE Edited Result - Final [facility] [address] [place] [address], [place] [phone] from Last 3 Months or Most Recently Relevant to Health Maintenance Insurance [facility] C3 DENTAL-[facility] [place] [address] Care Teams Strategic Marketing Manager Relationship Specialty Start Date End Date Martine Proctor MD [address] [place] [phone] PCP - General Internal Medicine 06/07/24
== END 2025-06-13 11:48 | disposition home or self-care (01) ==
LOC: HO.HHCX 11:47
PROVIDERS: Visit Provider Emergency Medicine
DX: R07.9 Chest pain, unspecified (principal)
CPT/HCPCS: 71046

== ENCOUNTER → 2025-06-13 11:48 | Outpatient (BNV) | payer MEDICAID, SELFPAY | PROVIDERS: Visit Provider Radiology Diagnostic Radiology | DX: R07.89 Other chest pain (principal) | CPT/HCPCS: 71046 ==

== ENCOUNTER 2025-06-13 11:59 | Outpatient (REF) | payer MEDICAID, SELFPAY ==
[2025-06-13 14:00] LABS: D Dimer High Sensitivity 244 NG/ML
== END 2025-06-13 12:00 | disposition home or self-care (01) ==
LOC: HO.HHCL 11:59
PROVIDERS: PCP Internal Medicine; Visit Provider Emergency Medicine
DX: N64.4 Mastodynia (principal)
CPT/HCPCS: 36415; 85379

== ENCOUNTER 2025-08-25 08:46 | Outpatient (REF) | payer MEDICAID, SELFPAY ==
[2025-08-25 11:38] LABS: Free T4 (Free Thyroxine) 0.94 ng/dL (0.71-1.85); Thyroid Stimulating Hormone 1.45 uIU/mL (0.32-4.0)
[2025-08-25 11:47] LABS: HBS Num1 28.86 mIU/mL (0-7.99); HBc Num1 0.19 S/CO (0.00-0.79); HBsAGNum1 0.55 S/CO (0.00-0.99); Hepatitis A Antibody IgM 0.16 Index (0-0.79); Hepatitis B Surface Antigen Negative (Negative); ~HepC Num1 0.14 S/CO (0.00-0.79); ~Hepatitis A Antibody IgM Nonreactive (Nonreactive); ~Hepatitis B Surface Antibody REACTIVE (Nonreactive); ~Hepatitis C Antibody Nonreactive (Nonreactive)
== END 2025-08-25 08:47 ==
LOC: HO.HHCL 08:46
PROVIDERS: PCP Internal Medicine; Visit Provider Internal Medicine
DX: Z11.59 Encounter for screening for other viral diseases (principal); E04.1 Nontoxic single thyroid nodule; I34.1 Nonrheumatic mitral (valve) prolapse
CPT/HCPCS: 36415; 84436; 84439; 84443; 84480; 84481; 86704; 86706; 86709; 86803; 87340